=== PATIENT | male | born 1975 | race Caucasian/White ===

== ENCOUNTER 2016-10-19 12:35 | Emergency (ER) | payer BC ==
[2016-10-19 12:40] VITALS: BP 122/78
[2016-10-19] MEDS: KETOROLAC 30 MG/ML VIAL. IV ONE (13:20)
[2016-10-19] MEDS: ONDANSETRON PF 4 MG/2 ML VIAL. IV ONE (13:21)
[2016-10-19] MEDS: IOHEXOL 300 MG/ML 75 ML VIAL. IV ONE (13:23)
[2016-10-19 13:28] LABS: BASO # 0.1 x10^3/uL (0.0-0.2); BASO % 1 % (0-3); EOS # 0.5 x10^3/uL (0.0-0.7); EOS % 5 % (0-3); HEMATOCRIT 43.2 % (39.0-53.0); HEMOGLOBIN 14.8 g/dL (13.0-17.5); LYMPH # 2.5 x10^3/uL (1.0-4.8); LYMPH % 27 % (24-48); MEAN CORPUSCULAR HEMOGLOBIN 30 pg (25-35); MEAN CORPUSCULAR HGB CONC 34 g/dL (31-37); MEAN CORPUSCULAR VOLUME 87 fL (79-100); MONO # 0.7 x10^3/uL (0.0-1.1); MONO % 7 % (0-9); NEUT # 5.6 x10^3uL (1.8-7.7); NEUT % 60 % (31-73); PLATELET COUNT 234 x10^3/uL (140-400); RED BLOOD COUNT 4.99 x10^6/uL (4.30-5.70); RED CELL DISTRIBUTION WIDTH 13.3 % (11.5-14.5); WHITE BLOOD COUNT 9.3 x10^3/uL (4.0-11.0)
--- NOTE | 2016-10-19 13:37 | RAD ---
Examination: CT of the abdomen pelvis with IV contrast History: History of right lower quadrant abdominal pain. Comparison: None available Technique: Axial CT images of the abdomen pelvis were performed with IV contrast with coronal and sagittal reformats were performed PQRS Compliance Statement: One or more of the following individualized dose reduction techniques were utilized for this examination: 1. Automated exposure control 2. Adjustment of the mA and/or kV according to patient size 3. Use of iterative reconstruction technique Findings: The visualized bibasal lungs grossly appears unremarkable. No evidence of free air identified in the abdomen. The visualized liver demonstrates small subcentimeter hypodensities in the left lobe of the liver too small to characterize probably cysts. The visualized spleen, adrenals grossly appears unremarkable. The gallbladder is mildly distended. The stomach is mildly distended. The visualized pancreas grossly appears unremarkable. The small bowel is nondilated. The appendix is normal. Feces and gas noted throughout the colon. Few sigmoid colon diverticulosis identified. The urinary bladder is mildly distended. Mildly enlarged prostate gland. The caliber of the aorta grossly appears unremarkable mild aortic atherosclerosis. The bilateral kidneys enhance symmetrically. No evidence of lytic bony destructive lesion. Impression: 1. No acute intra-abdominal findings. Normal-appearing appendix. 2. Few sigmoid colon diverticulosis.
[2016-10-19 13:42] LABS: ALBUMIN 4.1 g/dL (3.4-5.0); ALBUMIN/GLOBULIN RATIO 1.1 (1.0-1.7); CALCIUM 9.2 mg/dL (8.5-10.1); CREATININE 1.1 mg/dL (0.7-1.3); GFR 73.8; POTASSIUM 3.6 mmol/L (3.5-5.1); TOTAL BILIRUBIN 0.5 mg/dL (0.2-1.0); TOTAL PROTEIN 7.7 g/dL (6.4-8.2)
--- NOTE | 2016-10-19 13:49 | PHYS DOC ---
General Chief Complaint: ABDOMINAL PAIN Stated Complaint: ABDOMINAL PAIN Time Seen by MD: 13:00 Source: patient Exam Limitations: no limitations Problems: History of Present Illness Initial Comments Pt is 41/M to ED c/o abdominal pain. Pt states past three days periumbilical pain, today settled to RLQ. Decreased appetite, no n/v, only one loose watery stool Tuesday normal bowels since. No fever/chills/travel/bad food exposure. Timing/Duration: changing over time Severity: moderate Modifying Factors: improves with other Associated Symptoms: other Allergies: Coded Allergies: No Known Drug Allergies (Unverified , 10/19/16) Past Medical History Medical History: no pertinent history Surgical History: noncontributory Social History Smoker: non-smoker Alcohol: none Drugs: none Review of Systems Constitutional: denies chills, denies diaphoresis, denies fever Respiratory: denies cough, denies shortness of breath Cardiovascular: denies chest pain, denies palpitations Gastrointestinal: see HPI Genitourinary: denies dysuria, denies frequency, denies hematuria Musculoskeletal: denies back pain, denies joint swelling, denies neck pain Psychiatric/Neurological: denies headache, denies numbness, denies paresthesia Physical Exam General Appearance: WD/WN, no apparent distress Ear, Nose, Throat: hearing grossly normal, normal ENT inspection Neck: non-tender, supple Respiratory: normal breath sounds, no respiratory distress Cardiovascular: normal peripheral pulses, regular rate, rhythm Gastrointestinal: normal bowel sounds, soft (ND, low abd TTP R>L, no r/g/mass) , no organomegaly Rectal: deferred Back: no CVA tenderness, no vertebral tenderness Extremities: non-tender, normal inspection Neurologic/Psychiatric: swedger II-XII nml as tested, no motor/sensory deficits, alert, normal mood/affect, oriented x 3 Skin: normal color, warm/dry Orders, Labs, Meds PATIENT: BEREKET BURRELL ACCOUNT: [id number] : 1975 LOCATION: ER AGE: 41 SEX: M EXAM STATUS: REG ER ORD. PHYSICIAN: CLARK SANTANA DO REASON: RLQ pain r/o appy PROCEDURE: CT ABD PELV W/ IV CONTRST ONLY Examination: CT of the abdomen pelvis with IV contrast History: History of right lower quadrant abdominal pain. Comparison: None available Technique: Axial CT images of the abdomen pelvis were performed with IV contrast with coronal and sagittal reformats were performed PQRS Compliance Statement: One or more of the following individualized dose reduction techniques were utilized for this examination: 1. Automated exposure control 2. Adjustment of the mA and/or kV according to patient size 3. Use of iterative reconstruction technique Findings: The visualized bibasal lungs grossly appears unremarkable. No evidence of free air identified in the abdomen. The visualized liver demonstrates small subcentimeter hypodensities in the left lobe of the liver too small to characterize probably cysts. The visualized spleen, adrenals grossly appears unremarkable. The gallbladder is mildly distended. The stomach is mildly distended. The visualized pancreas grossly appears unremarkable. The small bowel is nondilated. The appendix is normal. Feces and gas noted throughout the colon. Few sigmoid colon diverticulosis identified. The urinary bladder is mildly distended. Mildly enlarged prostate gland. The caliber of the aorta grossly appears unremarkable mild aortic atherosclerosis. The bilateral kidneys enhance symmetrically. No evidence of lytic bony destructive lesion. Impression: 1. No acute intra-abdominal findings. Normal-appearing appendix. 2. Few sigmoid colon diverticulosis. DICTATED AND SIGNED BY: NIDIA ESPARZA MD DATE: 10/19/16 8223 CC: PCP,JAY JAY; CLARK SANTANA DO ~ Labs/urine unremarkable. 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 He expressed agreement/understanding with treatment plan. Departure Time of Disposition: 14:49 Disposition: 01 HOME, SELF-CARE Diagnosis: abdominal pain nonspecific Condition: STABLE Patient Instructions: Abdominal Pain Additional Instructions: Diet/activity as tolerated. OTC tylenol as needed. Follow up with your doctor in 3-5 days if no better. Return to ED with new or changing symptoms. CLARK SANTANA DO October 19, 2016 13:49
[2016-10-19 14:57] LABS: BILIRUBIN,URINE NEG (NEG); CLARITY,URINE CLEAR; COLOR,URINE YELLOW; UROBILINOGEN,URINE 0.2 mg/dL (0.2 mg/dL)
[2016-10-19 14:58] LABS: NITRITE,URINE NEG (NEG)
[2016-10-19 14:59] LABS: GLUCOSE,URINE NEG (NEG)
== END 2016-10-19 15:35 | disposition home or self-care (01) ==
LOC: ER 12:35
DX: R10.31 Right lower quadrant pain (principal)
CPT/HCPCS: 36415; 74177; 80053; 81003; 83690; 85027; 96374; 96375; 99285; J1885; J2405; Q9967